=== PATIENT | female | born 1985 | race Caucasian/White ===

== ENCOUNTER 2016-05-15 23:08 | Emergency (ER) | payer MEDICARE, MEDICAID ==
--- NOTE | ~2016-05-15 | ER ---
PATIENT'S NAME: ZUHAIR WALLER [facility] AGE: 30 Y [address] ROOM: [place] [address] LOCATION: [facility] ADMIT DATE: 05/15/2016 ER/Outpatient Report DISCHARGE DATE: 05/15/2016 FAMILY PHYSICIAN: Bonilla Miller MD ATTENDING PHYSICIAN: Shankar Jj Time of patient arrival: 2308 hours. Time of patient evaluation: 2315 hours. CHIEF COMPLAINT: Right hand pain from fall. HISTORY OF PRESENT ILLNESS: A 30-year-old female who presents to the ER with a right hand injury that happened . She states she tripped over a raised portion of the sidewalk and fell and struck her right hand in the fist position onto the ground. She states that it did bruise up. She states that it is still little bit tender, so she wanted to have it checked out. MEDICATIONS: Please see medication list in nurse's notes. PAST MEDICAL HISTORY: 1. Asthma. 2. Depression. 3. Borderline personality. PAST SURGERIES: None. SOCIAL HISTORY: Denies smoking, drug, or alcohol use. REVIEW OF SYSTEMS: CONSTITUTIONAL: Denies any change in weight or fatigue. MUSCULOSKELETAL: Complaining of right hand pain. HEMATOLOGIC: No easy bruising or bleeding. SKIN: No lesions or rashes. PHYSICAL EXAMINATION: VITAL SIGNS: Height 5 feet 6 inches stated, weight 127.6 kg taken, blood pressure is 127/52, pulse 110, respirations 16, saturations 98% on room air. Eryn Coma Score is 15. GENERAL: Alert and morbidly obese female, in no acute distress. EXTREMITIES: No clubbing or cyanosis. She does have full range of motion of PATIENT'S NAME: ZUHAIR WALLER [facility] AGE: 30 Y [address] ROOM: [place] [address] LOCATION: [facility] ADMIT DATE: 05/15/2016 ER/Outpatient Report DISCHARGE DATE: 05/15/2016 FAMILY PHYSICIAN: Bonilla Miller MD ATTENDING PHYSICIAN: Shankar Jj her right fist and right hand. She does have some pain with palpation over the distal aspect of her third and fourth metacarpals. She has no tenderness with palpation over the distal, radius, and ulna. She is able to supinate and pronate her forearm with no difficulties. She has no pain in her elbow. NEURO: Cranial nerves 2 through 12 grossly intact. Gait is steady without assistance. SKIN: She does have bruising over her knuckles. LABORATORY DATA: None were done. X-RAYS: X-rays of the right hand showed no fracture. IMPRESSION: Right hand contusion from fall. ASSESSMENT AND PLAN: I did give the patient reassurance. I advised her to use Tylenol or ibuprofen as needed for pain control. Ice and elevate the hand and follow up with primary care physician as needed. The patient understands and agrees with care. MILAGRO CAIN PA-C FOR MD NILS CASTANEDA/aurea /[id number] d: 05/16/16 1347 t: 05/26/16 0844, OUTPATIENT REPORT
== END 2016-05-15 23:58 | disposition disaster alternative care site (69) ==
LOC: GACC 23:08
DX: S60.221A Contusion of right hand, initial encounter (principal); J45.909 Unspecified asthma, uncomplicated; F32.9 Major depressive disorder, single episode, unspecified; W01.0XXA Fall on same level from slipping, tripping and stumbling without subsequent striking against object, initial encounter

== ENCOUNTER 2016-08-06 02:49 | Emergency (ER) | payer MEDICARE, MEDICAID ==
--- NOTE | ~2016-08-06 | ER ---
PATIENT'S NAME: ZUHAIR WALLER [facility] AGE: 30 Y [address] ROOM: [place] [address] LOCATION: [facility] ADMIT DATE: 08/06/2016 ER/Outpatient Report DISCHARGE DATE: 08/06/2016 FAMILY PHYSICIAN: Bonilla Miller MD ATTENDING PHYSICIAN: Mariela Marsh HISTORY OF PRESENT ILLNESS: A 30-year-old female who presents today with chief complaint of left arm redness and swelling. No fever or chills. The patient states that approximately four days ago she had Implanon placed in her left upper arm. States that she had some redness and swelling around the incision site, which she noticed the day after and it is getting bigger. Did not talk to her doctor who put it in. She is here at 3 in the morning with 9/10 pain. She has not taken anything for pain at this time. Denies any fever or chills. No nausea or vomiting. No chest pain. No abdominal pain. No other complaints. PAST MEDICAL HISTORY: Includes asthma and depression. PAST SURGICAL HISTORY: None. SOCIAL HISTORY: Alcohol occasional. Does not smoke or use any drugs. MEDICATIONS: Please see med list. ALLERGIES: ZITHROMAX. REVIEW OF SYSTEMS: Reviewed by me and with the exception of those discussed in the HPI. PHYSICAL EXAMINATION: VITAL SIGNS: The patient is 5 feet 6 inches, 131.8 kg, blood pressure 149/71, heart rate 101, respiratory rate 16, temperature is 98.1, and sats are 98% on room air. GENERAL: The patient is nontoxic, well appearing, Texting on her phone at this time. Speaking in full sentences. Alert and oriented x4. She is morbidly obese. HEART: Regular rate and rhythm. She is not tachycardic at this time. Heart rate is about 80 beats per minute. LUNGS: Lung sounds are clear. ABDOMEN: Soft and nontender. PATIENT'S NAME: ZUHAIR WALLER [facility] AGE: 30 Y [address] ROOM: [place] [address] LOCATION: [facility] ADMIT DATE: 08/06/2016 ER/Outpatient Report DISCHARGE DATE: 08/06/2016 FAMILY PHYSICIAN: Bonilla Miller MD ATTENDING PHYSICIAN: Mariela Marsh EXTREMITIES: I can feel where the Implanon was placed. There is no purulent drainage from the incision site, but there is a surrounding area of redness, erythema, and some induration. It expands oval shape, about 4 x 6 cm. It is mildly raised as well, and it is tender on palpation, but no crepitus. EMERGENCY ROOM COURSE: I discussed with the patient that she may need to have this Implanon taken out. I do not see any purulent discharge at this time, but she needs to go back to her doctor tomorrow to see if they can take it out. In any case, we will start her on Bactrim and Keflex for staph and strep coverage, and will have her follow up with her doctor as soon as possible to evaluate for possible removal of this Implanon as I do believe it is infected. IMPRESSION: Cellulitis. MD WAQAR BENÍTEZ/aurea /[id number] d: 08/06/16 0427 t: 08/06/161955, OUTPATIENT REPORT
== END 2016-08-06 03:14 | disposition disaster alternative care site (69) ==
LOC: GMED 02:49
DX: L03.114 Cellulitis of left upper limb (principal); J45.909 Unspecified asthma, uncomplicated; F32.9 Major depressive disorder, single episode, unspecified; Z88.1 Allergy status to other antibiotic agents